=== PATIENT | female | born 1955 | race Caucasian/White ===

== ENCOUNTER 2019-10-15 12:23 | Emergency (ER) | payer MEDICARE, BC ==
[~2019-10-15] VITALS: Ht 170.2 cm; Wt 94.5 kg
[2019-10-15] MEDS ORDERED: ACET-1025 PO (13:01)
[2019-10-15] MEDS ORDERED: NAPR220T67 PO (13:01)
[2019-10-15] MEDS ORDERED: ALBU8.5H8 INH (13:01)
[2019-10-15] MEDS ORDERED: OMEP40CA13 PO (13:01)
[2019-10-15] MEDS ORDERED: SERIN IH (13:01)
[2019-10-15] MEDS ORDERED: olodaterol INH (13:01)
[2019-10-15] MEDS ORDERED: SUCR1TAB PO (13:01)
[2019-10-15] MEDS ORDERED: KEN0.1O TP (13:01)
[2019-10-15] MEDS ORDERED: BECL7.3A7 INH (13:01)
[2019-10-15 13:14] LABS: BASOPHILS # (AUTO) 0.1 X10'3 (0-0.2); BASOPHILS % (AUTO) 0.6 % (0-1); EOSINOPHILS # (AUTO) 0.2 X10'3 (0-0.9); EOSINOPHILS % (AUTO) 2.7 % (0-6); HEMATOCRIT 53.9 % (35.0-45.0); HEMOGLOBIN 17.5 g/dl (12.0-16.0); LYMPHOCYTES # (AUTO) 1.9 X10'3 (1.1-4.8); LYMPHOCYTES % (AUTO) 22.6 % (21-51); MEAN CORPUSCULAR HGB CONC 32.5 g/dL (33.0-36.5); MEAN CORPUSCULAR VOLUME 92.3 FL (78-98); MEAN PLATELET VOLUME 6.9 FL (7.4-10.4); MONOCYTES # (AUTO) 0.7 X10'3 (0-0.9); MONOCYTES % (AUTO) 8.2 % (2-12); NEUTROPHILS # (AUTO) 5.6 X10'3 (1.8-7.7); NEUTROPHILS % (AUTO) 65.9 % (42-75); PLATELET COUNT 244 X10'3 (140-440); RED BLOOD COUNT 5.84 X10'6 (4.20-5.60); RED CELL DISTRIBUTION WIDTH 15.9 % (11.5-14.5); WHITE BLOOD COUNT 8.5 X10'3 (4.5-11.0)
[2019-10-15 13:29] LABS: PARTIAL THROMBOPLASTIN TIME 28 SECONDS (22-32)
[2019-10-15 13:30] LABS: ALANINE AMINOTRANSFERASE 26 U/L (12-78); ALBUMIN 3.6 G/DL (3.4-5.0); ALBUMIN/GLOBULIN RATIO 1.1 (1.1-1.5); ALKALINE PHOSPHATASE 90 IU/L (46-116); ANION GAP 4 (8-16); ASPARTATE AMINO TRANSFERASE 18 U/L (10-37); BILIRUBIN,TOTAL 0.7 MG/DL (0.1-1.0); BLOOD UREA NITROGEN 17 MG/DL (7-18); BUN/CREATININE RATIO 22.7 (6.6-38.0); CALCIUM 9.4 MG/DL (8.5-10.1); CHLORIDE 105 MMOL/L (99-107); CREATININE 0.75 MG/DL (0.40-0.90); GLUCOSE 113 MG/DL (70-104); SODIUM 142 MMOL/L (135-145); eGFR 77 ML/MIN
--- NOTE | 2019-10-15 13:35 | NUR ---
Awaiting doppler tech for [place] study.
--- NOTE | 2019-10-15 14:30 | NUR ---
Dopper tech at bedside.
[2019-10-15 14:45] VITALS: BP 149/78
[2019-10-15] MEDS ORDERED: ketorolac tromethamine 15mg/ml inj. IM ONE (15:00)
[2019-10-15 15:10] LABS: D-DIMER 0.48 MG/L FEU (0-0.50)
[2019-10-15] MEDS ORDERED: GABA-532 PO (15:38)
== END 2019-10-15 15:45 | disposition home or self-care (01) ==
LOC: ER 12:24
DX: M25.562 Pain in left knee (principal); J44.9 Chronic obstructive pulmonary disease, unspecified; K21.9 Gastro-esophageal reflux disease without esophagitis; R00.2 Palpitations; F17.200 Nicotine dependence, unspecified, uncomplicated; M54.5 Low back pain; M79.662 Pain in left lower leg; R20.0 Anesthesia of skin; R06.02 Shortness of breath; R53.83 Other fatigue; Z79.899 Other long term (current) drug therapy
CPT/HCPCS: 36415; 71045; 80053; 85025; 85379; 85610; 85730; 93005; 93971; 96372; 99285; J1885

== ENCOUNTER 2020-05-11 12:08 | Day surgery (SDC) | payer MEDICARE, BC ==
[2020-05-08 16:00] LABS: BASOPHILS # (AUTO) 0.1 X10'3 (0-0.2); BASOPHILS % (AUTO) 0.6 % (0-1); EOSINOPHILS # (AUTO) 0.1 X10'3 (0-0.9); EOSINOPHILS % (AUTO) 0.9 % (0-6); HEMATOCRIT 50.4 % (35.0-45.0); HEMOGLOBIN 16.2 g/dl (12.0-16.0); LYMPHOCYTES # (AUTO) 2.2 X10'3 (1.1-4.8); LYMPHOCYTES % (AUTO) 24.9 % (21-51); MEAN CORPUSCULAR HEMOGLOBIN 29.3 PG (27.0-31.0); MEAN CORPUSCULAR HGB CONC 32.1 g/dL (33.0-36.5); MEAN CORPUSCULAR VOLUME 91.1 FL (78-98); MEAN PLATELET VOLUME 7.4 FL (7.4-10.4); MONOCYTES # (AUTO) 0.8 X10'3 (0-0.9); MONOCYTES % (AUTO) 9.2 % (2-12); NEUTROPHILS # (AUTO) 5.7 X10'3 (1.8-7.7); NEUTROPHILS % (AUTO) 64.4 % (42-75); PLATELET COUNT 284 X10'3 (140-440); RED BLOOD COUNT 5.54 X10'6 (4.20-5.60); RED CELL DISTRIBUTION WIDTH 16.2 % (11.5-14.5); WHITE BLOOD COUNT 8.8 X10'3 (4.5-11.0)
[2020-05-08 16:12] LABS: ALBUMIN 3.5 G/DL (3.4-5.0); ANION GAP 5 (8-16); BLOOD UREA NITROGEN 26 MG/DL (7-18); CALCIUM 9.4 MG/DL (8.5-10.1); CHLORIDE 102 MMOL/L (99-107); CREATININE 0.65 MG/DL (0.40-0.90); GLUCOSE 108 MG/DL (70-104); PARTIAL THROMBOPLASTIN TIME 28 SECONDS (22-32); POTASSIUM 4.7 MMOL/L (3.5-5.1); SODIUM 138 MMOL/L (135-145); TOTAL CARBON DIOXIDE 31.4 MMOL/L (24-32); eGFR > 90 ML/MIN
[~2020-05-11] VITALS: Ht 170.2 cm; Wt 91.4 kg
[2020-05-11] VITALS (11 sets, daily range): BP systolic 105–124; BP diastolic 51–86
[~2020-05-11 12:08] MED LIST: ACET-1025 PO; ALBU8.5H8 INH; BECL7.3A7 INH; GABA-532 PO; KEN0.1O TP; NAPR220T67 PO; OMEP40CA13 PO; SERIN IH; SUCR1TAB PO; olodaterol INH
[2020-05-11] MEDS ORDERED: diphenhydrAMINE 25mg capsule PO PRN (12:30)
[2020-05-11] MEDS ORDERED: normal saline 1,000 ML IV SCH (12:30)
[2020-05-11] MEDS ORDERED: LORazepam 0.5 MG tablet PO PRN (12:30)
[2020-05-11] MEDS ORDERED: TIOT4MIS5 (12:42)
[2020-05-11] MEDS ORDERED: APIX5TAB3 PO (12:43)
[2020-05-11] MEDS ORDERED: LIDOcaine/PRILOcaine 5gm cream TP ONE (12:45)
[2020-05-11] MEDS ORDERED: SPIR25TA5 PO (12:46)
[2020-05-11] MEDS ORDERED: SACU1TAB PO (12:46)
[2020-05-11] MEDS ORDERED: fentaNYL/PF 50MCG/1 ML 2ML syringe ONE (13:56)
[2020-05-11] MEDS ORDERED: midazolam 2 mg/2 ml injection ONE (13:56)
[2020-05-11] MEDS ORDERED: LIDOcaine 1% (10mg/ml)w/preservative injection 20ml MDV ONE (13:56)
[2020-05-11] MEDS ORDERED: verapamil 2.5 mg/ml inj IV ONE (13:56)
[2020-05-11] MEDS ORDERED: heparin 1,000unit/ml 10ml vial 10 ML ONE (13:56)
[2020-05-11] MEDS ORDERED: nitroGLYCERIN-Tridil 50MG/D5W 250 ML IV ONE (13:56)
[2020-05-11] MEDS ORDERED: iohexol 350MG/ML 100ml bottle IV ONE (13:56)
[2020-05-11] MEDS ORDERED: heparin 1,000 UNITS/NS 500ml 500 ML ONE (13:57)
[2020-05-11] MEDS ORDERED: OXAZEpam 15mg capsule PO PRN (15:50)
[2020-05-11] MEDS ORDERED: nitroGLYCERIN 0.4mg SUBLingual tab SL PRN (15:50)
[2020-05-11] MEDS ORDERED: ondansetron/PF 4mg/2ml inj IV PRN (15:50)
[2020-05-11] MEDS ORDERED: proCHLORperazine 10 MG/2 ml inj IV PRN (15:50)
[2020-05-11] MEDS ORDERED: HYDROcodone/acetaminophen 5mg/325mg tablet PO PRN (15:50)
[2020-05-11] MEDS ORDERED: acetaminophen 325mg tablet PO PRN (15:50)
[2020-05-11] MEDS ORDERED: HYDROcodone/acetaminophen 10/325mg tab PO PRN (15:50)
== END 2020-05-11 18:05 | disposition home or self-care (01) ==
LOC: SSTAY O 12:08
PROVIDERS: ATTEND Student in an Organized Health Care Education/Training Program
DX: R94.39 Abnormal result of other cardiovascular function study (principal); E78.5 Hyperlipidemia, unspecified; J44.9 Chronic obstructive pulmonary disease, unspecified; F17.210 Nicotine dependence, cigarettes, uncomplicated; K21.9 Gastro-esophageal reflux disease without esophagitis; I11.0 Hypertensive heart disease with heart failure; I50.9 Heart failure, unspecified; Z79.01 Long term (current) use of anticoagulants; Z79.899 Other long term (current) drug therapy
CPT/HCPCS: 36415; 80048; 85025; 85610; 85730; 93005; 93458; 99152; C1769; C1894; J1644; J2001; J2250; J3010; J7030; Q0163; Q9967; A4620; A5120; J3490

== ENCOUNTER 2020-05-20 06:19 | Emergency (ER) | payer MEDICARE, BC ==
[~2020-05-20] VITALS: Ht 172.7 cm; Wt 100.0 kg
[~2020-05-20 06:19] MED LIST changes: +APIX5TAB3 PO; -GABA-532 PO; -KEN0.1O TP; -NAPR220T67 PO; +SACU1TAB PO; -SERIN IH; +SPIR25TA5 PO; +TIOT4MIS5; -olodaterol INH
[2020-05-20 06:36] VITALS: BP 117/68
[2020-05-20] MEDS ORDERED: aspirin 81mg tab.chew PO ONE (07:05)
[2020-05-20 07:30] LABS: BASOPHILS % (AUTO) 0.7 % (0-1); EOSINOPHILS # (AUTO) 0.1 X10'3 (0-0.9); EOSINOPHILS % (AUTO) 2.1 % (0-6); HEMATOCRIT 47.8 % (35.0-45.0); HEMOGLOBIN 15.6 g/dl (12.0-16.0); LYMPHOCYTES # (AUTO) 1.3 X10'3 (1.1-4.8); LYMPHOCYTES % (AUTO) 19.6 % (21-51); MEAN CORPUSCULAR HEMOGLOBIN 29.9 PG (27.0-31.0); MEAN CORPUSCULAR HGB CONC 32.6 g/dL (33.0-36.5); MEAN CORPUSCULAR VOLUME 91.7 FL (78-98); MEAN PLATELET VOLUME 7.5 FL (7.4-10.4); MONOCYTES # (AUTO) 0.6 X10'3 (0-0.9); MONOCYTES % (AUTO) 8.6 % (2-12); NEUTROPHILS # (AUTO) 4.7 X10'3 (1.8-7.7); PLATELET COUNT 235 X10'3 (140-440); RED BLOOD COUNT 5.21 X10'6 (4.20-5.60); RED CELL DISTRIBUTION WIDTH 16.5 % (11.5-14.5); WHITE BLOOD COUNT 6.8 X10'3 (4.5-11.0)
[2020-05-20 07:40] LABS: ALANINE AMINOTRANSFERASE 26 U/L (12-78); ALBUMIN 3.4 G/DL (3.4-5.0); ALBUMIN/GLOBULIN RATIO 1.1 (1.1-1.5); ALKALINE PHOSPHATASE 58 IU/L (46-116); ANION GAP 5 (8-16); ASPARTATE AMINO TRANSFERASE 15 U/L (10-37); BILIRUBIN,TOTAL 0.5 MG/DL (0.1-1.0); BLOOD UREA NITROGEN 26 MG/DL (7-18); BUN/CREATININE RATIO 38.2 (6.6-38.0); CALCIUM 9.8 MG/DL (8.5-10.1); CHLORIDE 107 MMOL/L (99-107); CREATININE 0.68 MG/DL (0.40-0.90); GLUCOSE 117 MG/DL (70-104); POTASSIUM 4.7 MMOL/L (3.5-5.1); SODIUM 144 MMOL/L (135-145); TOTAL CARBON DIOXIDE 32.4 MMOL/L (24-32); TOTAL PROTEIN 6.6 G/DL (6.4-8.2); eGFR 87 ML/MIN
--- NOTE | 2020-05-20 07:52 | NUR ---
pt refused asa med. pt states she doesnt want an upset stomach. aware
[2020-05-20 07:54] LABS: C-REACTIVE PROTEIN < 0.05 MG/DL (0.0-0.5); FERRITIN 14 NG/ML (8-252); LACTATE DEHYDROGENASE 176 U/L (81-234); MAGNESIUM 2.1 MG/DL (1.5-2.4)
[2020-05-20] MEDS ORDERED: DOXY100C43 PO (07:57)
[2020-05-20] MEDS ORDERED: PRED20TA PO (07:57)
== END 2020-05-20 08:21 | disposition home or self-care (01) ==
LOC: ER 06:19
DX: R06.02 Shortness of breath (principal); J45.909 Unspecified asthma, uncomplicated; K21.9 Gastro-esophageal reflux disease without esophagitis; F17.200 Nicotine dependence, unspecified, uncomplicated; Z95.811 Presence of heart assist device; Z88.1 Allergy status to other antibiotic agents; Z88.8 Allergy status to other drugs, medicaments and biological substances; Z79.899 Other long term (current) drug therapy
CPT/HCPCS: 36415; 71045; 80053; 82728; 83615; 83735; 83880; 84145; 84484; 85025; 85384; 86140; 87635; 93005; 99285; 99406; C9803

== ENCOUNTER 2020-10-30 12:05 | Outpatient (CLI) | payer MEDICARE, BC ==
[2020-10-30 13:08] LABS: BASOPHILS # (AUTO) 0.1 X10'3 (0-0.2); BASOPHILS % (AUTO) 0.6 % (0-1); EOSINOPHILS # (AUTO) 0.2 X10'3 (0-0.9); HEMATOCRIT 46.9 % (35.0-45.0); HEMOGLOBIN 15.2 g/dl (12.0-16.0); LYMPHOCYTES # (AUTO) 2.1 X10'3 (1.1-4.8); LYMPHOCYTES % (AUTO) 22.6 % (21-51); MEAN CORPUSCULAR HEMOGLOBIN 31.3 PG (27.0-31.0); MEAN CORPUSCULAR HGB CONC 32.5 g/dL (33.0-36.5); MEAN CORPUSCULAR VOLUME 96.5 FL (78-98); MEAN PLATELET VOLUME 6.8 FL (7.4-10.4); MONOCYTES # (AUTO) 0.8 X10'3 (0-0.9); MONOCYTES % (AUTO) 8.4 % (2-12); NEUTROPHILS # (AUTO) 6.3 X10'3 (1.8-7.7); NEUTROPHILS % (AUTO) 66.4 % (42-75); PLATELET COUNT 239 X10'3 (140-440); RED BLOOD COUNT 4.85 X10'6 (4.20-5.60); RED CELL DISTRIBUTION WIDTH 13.9 % (11.5-14.5); WHITE BLOOD COUNT 9.4 X10'3 (4.5-11.0)
[2020-10-30 13:19] LABS: ALANINE AMINOTRANSFERASE 17 U/L (12-78); ALBUMIN 3.4 G/DL (3.4-5.0); ALKALINE PHOSPHATASE 71 IU/L (46-116); ANION GAP 6 (8-16); ASPARTATE AMINO TRANSFERASE 12 U/L (10-37); BILIRUBIN,TOTAL 0.7 MG/DL (0.1-1.0); BLOOD UREA NITROGEN 24 MG/DL (7-18); CALCIUM 9.4 MG/DL (8.5-10.1); CHLORIDE 105 MMOL/L (99-107); CREATININE 0.49 MG/DL (0.40-0.90); GLUCOSE 106 MG/DL (70-104); POTASSIUM 4.1 MMOL/L (3.5-5.1); SODIUM 140 MMOL/L (135-145); TOTAL PROTEIN 6.8 G/DL (6.4-8.2); eGFR > 90 ML/MIN
[2020-10-30] MEDS ORDERED: IODIXANOL 320 MG/ML INFUS..BTL 100ML IV ONE (14:31)
[2020-10-30] MEDS ORDERED: IODIXANOL 320 MG/ML INFUS..BTL 50ML IV ONE (14:50)
== END 2020-10-30 23:59 | disposition home or self-care (01) ==
LOC: 64 CT 12:05
PROVIDERS: ATTEND Internal Medicine Cardiovascular Disease
DX: J98.11 Atelectasis (principal); J43.2 Centrilobular emphysema; K57.30 Diverticulosis of large intestine without perforation or abscess without bleeding; M51.27 Other intervertebral disc displacement, lumbosacral region; M81.0 Age-related osteoporosis without current pathological fracture; M48.061 Spinal stenosis, lumbar region without neurogenic claudication; I35.0 Nonrheumatic aortic (valve) stenosis; R06.02 Shortness of breath; I65.29 Occlusion and stenosis of unspecified carotid artery; I48.91 Unspecified atrial fibrillation
CPT/HCPCS: 36415; 71275; 74174; 80053; 85025; Q9967